=== PATIENT | female | born 1975 | race Two or more races ===

== ENCOUNTER → 2018-02-09 10:40 | Outpatient (CLI) | payer SELFPAY ==
[2018-02-13 11:16] LABS: HPV Reflexed? NOT INDICATED
== END ==
PROVIDERS: Visit Provider Obstetrics & Gynecology
DX: Z12.4 Encounter for screening for malignant neoplasm of cervix (principal)
CPT/HCPCS: 88175; G0145

== ENCOUNTER → 2019-04-20 11:37 | Outpatient (CLI) | payer SELFPAY ==
--- NOTE | 2019-04-19 12:00 | EMB_PTH ---
PATIENT: BENOIT CARRERA LOC: [facility] U#:[id number] AGE/SX: 50/F ROOM: RE04/20/[address]: Dr. Philip Jacob MD : 1975 BED: DIS: SPEC #: [id number] RECD: 04/20/19 10:37 STATUS: LON SHILO #: [id number] BERTHA: 04/19/19 12:[address]: Philip Jacob DEPT: SURGICAL PATHOLOGY RECD BY: Croey Negron ENTERED: 04/20/19 14:33 SP TYPE: ENDOM BX/C ROSANGELA DR: No Primary Care Phys Tissues: Endometrium, NOS Procedures: Surgery Specimen Level IV HEADER OPERATION: Endometrial biopsy PRE-OP DIAGNOSIS: N93.9 TISSUE SUBMITTED: Endometrial biopsy MICROSCOPIC DIAGNOSIS Endometrial biopsy: Secretory endometrium with extensive glandular and stromal breakdown. SJ:delio 04/21/19 COMMENT Clinical correlation and appropriate follow up are necessary. Case has been reviewed in consultation with Dr. Anderson who concurs with the above diagnosis. IDC:AM MICROSCOPIC DESCRIPTION Slides are reviewed. GROSS DESCRIPTION Received in fixative is one container labeled with the patient's name and designated EM biopsy. The specimen consists of multiple fragments of hemorrhagic soft tissue that in aggregate measure 3 x 2.5 x 0.3 cm. The specimen is totally submitted in one cassette. / SJ:delio 04/20/19 TC:5 CPT: 93491
[2019-04-24 13:52] LABS: HPV APTIMA, High Risk Negative (Negative)
[2019-04-24 13:53] LABS: HPV Reflexed? YES, CHARGE PATIENT
== END ==
PROVIDERS: Referring Provider Obstetrics & Gynecology; Visit Provider Obstetrics & Gynecology
DX: Z12.4 Encounter for screening for malignant neoplasm of cervix (principal); N93.9 Abnormal uterine and vaginal bleeding, unspecified
CPT/HCPCS: 87624; 88175; 88305; G0145

== ENCOUNTER 2021-11-26 10:56 | Outpatient (CLI) | payer SELFPAY ==
--- NOTE | 2021-11-26 | EMB_PTH ---
PATIENT: BENOIT CARRERA LOC: [facility] U#:[id number] AGE/SX: 46/F ROOM: RE11/26/[address]: Dr. Philip Jacob MD : 1975 BED: DIS: 11/26/2021 SPEC #: [id number] RECD: 11/26/21 13:18 STATUS: LON REMilton #: [id number] BERTHA: 11/26/21 00:[address]: Philip Jacob DEPT: SURGICAL PATHOLOGY RECD BY: Shahzad Andrade ENTERED: 11/26/21 13:18 SP TYPE: ENDOM BX/C ROSANGELA DR: No Primary Care Phys Tissues: Endometrium, NOS Procedures: Surgery Specimen Level IV HEADER OPERATION: Endometrial biopsy PRE-OP DIAGNOSIS: N92.6 TISSUE SUBMITTED: Endometrial biopsy MICROSCOPIC DIAGNOSIS Endometrial biopsy: Secretory endometrium. SJ:delio 11/27/2021 MICROSCOPIC DESCRIPTION Slides are reviewed. GROSS DESCRIPTION Received in fixative is one container labeled with the patient's name and designated EMB. The specimen consists of multiple fragments of pink hemorrhagic soft tissue that in aggregate measure 3 x 2.5 x 0.2 cm. The specimen is totally submitted in one cassette. / SJ:delio 11/26/2021 TC:4 CPT: 64513
[2021-11-28 14:28] LABS: HPV Reflexed? NOT INDICATED
== END 2021-11-26 23:59 | disposition home or self-care (01) ==
LOC: LABSPEC 10:56
PROVIDERS: Visit Provider Obstetrics & Gynecology
DX: N92.6 Irregular menstruation, unspecified (principal); Z12.4 Encounter for screening for malignant neoplasm of cervix
CPT/HCPCS: 88175; 88305; G0145